=== PATIENT | male | born 1980 | race Two or more races ===

== ENCOUNTER 2017-08-11 15:34 | Emergency (ER) | payer SELFPAY ==
[~2017-08-11] VITALS: Ht 182.9 cm; Wt 86.2 kg
[~2017-08-11 15:34] MED LIST: MAGN30TA4 PO; MULTTAB99 PO; OMEG120017 PO; PROBTAB12 OR; [UNRECOGNIZED DRUG - CODE] PO; [UNRECOGNIZED DRUG - CODE] XX
[2017-08-11 15:48] VITALS: BP 159/83
== END 2017-08-11 19:40 | disposition home or self-care (01) ==
LOC: ER 15:34
DX: S90.31XA Contusion of right foot, initial encounter (principal); Z88.8 Allergy status to other drugs, medicaments and biological substances; Z79.899 Other long term (current) drug therapy; W17.89XA Other fall from one level to another, initial encounter; Y93.89 Activity, other specified; Y92.89 Other specified places as the place of occurrence of the external cause; Y99.8 Other external cause status
CPT/HCPCS: 73630; 99284; L3260